=== PATIENT | female | born 1960 | race Asian ===

== ENCOUNTER 2016-12-30 15:45 | Inpatient (IN) | payer OTHER ==
[~2016-12-30] VITALS: Ht 157.5 cm; Wt 54.4 kg
--- NOTE | 2016-12-30 17:21 | Emergency Room Report ---
History of Present Illness General Chief Complaint: Multiple Trauma/Fall Source: Patient Present Illness HPI 56 YOF with known right hip cancer presents with fall on right hip going to bathroom. On chemo for right hip "bone cancer." Ambulates with crutches at baseline. No other medical problems. Didnt hit head or other injury. Allergies: Coded Allergies: No Known Allergies (Unverified , 12/30/16) Patient History Past Medical History: other - "bone cancer" Past Surgical History: none Pertinent Family History: none Social History: Denies: alcohol use, drug use, smoking Now: No Immunizations: UTD Reviewed Nursing Documentation: PMH: Agreed, PSxH: Agreed Nursing Documentation-PMH Hx Cancer: Yes - RIGHT HIP Review of Systems All Other Systems: negative except mentioned in HPI Physical Exam Vital Signs Date Time Temp Pulse Resp B/P Pulse Ox O2 Delivery O2 Flow Rate FiO2 12/30/16 15:37 97.2 78 16 119/71 98 Room Air Sp02 EP Interpretation: reviewed, normal General Appearance: normal inspection, well appearing, no apparent distress, alert, GCS 15, non-toxic Head: normocephalic, atraumatic Eyes: bilateral eye EOMI, bilateral eye PERRL ENT: normal ENT inspection, hearing grossly normal, normal voice Neck: normal inspection, full range of motion, supple, no bony tend Respiratory: normal inspection, lungs clear, normal breath sounds, no respiratory distress, no retraction, no wheezing Cardiovascular #1: regular rate, rhythm, no edema Gastrointestinal: normal inspection, normal bowel sounds, non tender, soft, no guarding, no hernia Genitourinary: no CVA tenderness Musculoskeletal: normal inspection, back normal, no calf tenderness, pelvis stable, Angel Luis's Sign negative, other - Right lower extremity shortened, rotated externally. 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 H&h stable. CT hip with acute traumatic fx of right femoral neck thru lytic lesion. Other lytic lesions and ?old fractures pathological also seen Endorsed to Dr Gagnon at 715pm for med surg admission Consult placed to Dr Silverman also at 715pm Last Vital Signs Date Time Temp Pulse Resp B/P Pulse Ox O2 Delivery O2 Flow Rate FiO2 12/30/16 15:37 97.2 78 16 119/71 98 Room Air Status: improved Disposition: ADMITTED INPATIENT Condition: Serious JULISA HOLLAND M.D. Dec 30, 2016 17:21
[2016-12-30] MEDS ORDERED: Ketorolac 30mg Inj IV ONE (17:30)
[2016-12-30 17:55] LABS: MEAN CORPUSCULAR HEMOGLOBIN 31.3 PG (27.0-31.0); MEAN CORPUSCULAR HGB CONC 32.2 G/DL (32.0-36.0); MEAN CORPUSCULAR VOLUME 97 FL (80-99); MEAN PLATELET VOLUME 6.9 FL (6.5-10.1); PLATELET COUNT 133 K/UL (150-450); RED BLOOD COUNT 3.47 M/UL (4.20-5.40); RED CELL DISTRIBUTION WIDTH 14.3 % (11.6-14.8)
[2016-12-30 18:10] LABS: ALANINE AMINOTRANSFERASE 19 U/L (3-33); ALBUMIN/GLOBULIN RATIO 1.7 (1.0-2.7); ANION GAP 17 (5-15); ASPARTATE AMINO TRANSFERASE 17 U/L (5-40); CALCIUM 9.3 mg/dL (8.6-10.2); CARBON DIOXIDE 25 mEQ/L (20-30); CHLORIDE 97 mEQ/L (98-107); CREATININE 0.4 mg/dL (0.5-0.9); GLOMERULAR FILTRATION RATE > 60 mL/min (>60); HEMOLYSIS 5; POTASSIUM 4.2 mEQ/L (3.4-4.9); SODIUM 139 mEQ/L (135-145); TOTAL PROTEIN 6.6 g/dL (6.6-8.7)
[2016-12-30] MEDS ORDERED: NKM (18:13)
[2016-12-30 18:47] LABS: ANISOCYTOSIS 1+; BAND NEUTROPHILS % (MANUAL) 1 % (0-8); BASOPHILS % (MANUAL) 0 % (0-2); EOSINOPHILS % (MANUAL) 0 % (0-3); HYPOCHROMASIA 1+; LYMPHOCYTES % (MANUAL) 8 % (20-45); NEUTROPHILS % (MANUAL) 87 % (45-75); PLATELET ESTIMATE DECREASED; PLATELET MORPHOLOGY NORMAL; TOTAL CELLS COUNTED 100
[2016-12-30 20:12] VITALS: BP 98/63
[2016-12-30] MEDS: Morphine Sulfate 4mg/ml Inj IVP PRN (20:36)
[2016-12-30 20:47] LABS: HEMOLYSIS 5; IRON 51 ug/dL (37-145); TOTAL IRON BINDING CAPACITY 218 ug/dL (250-400)
[2016-12-30 21:19] LABS: FERRITIN 406 ng/mL (13-150)
[2016-12-30 22:00] VITALS: BP 112/71
[2016-12-30] MEDS ORDERED: Morphine Sulfate 4mg/ml Inj IVP PRN (22:30)
[2016-12-31] VITALS: BP 101/62
[2016-12-31] MEDS: Morphine Sulfate 4mg/ml Inj IVP PRN ×4 (01:15→23:50)
[2016-12-31 04:00] VITALS: BP 102/61
[2016-12-31 06:53] LABS: ANION GAP 12 (5-15); CALCIUM 8.4 mg/dL (8.6-10.2); CARBON DIOXIDE 28 mEQ/L (20-30); CHLORIDE 101 mEQ/L (98-107); CREATININE 0.4 mg/dL (0.5-0.9); GLOMERULAR FILTRATION RATE > 60 mL/min (>60); HEMOLYSIS 1; POTASSIUM 4.2 mEQ/L (3.4-4.9); SODIUM 141 mEQ/L (135-145)
[2016-12-31 07:15] LABS: BASOPHILS % (AUTO) 0.4 % (0.0-2.0); EOSINOPHILS % (AUTO) 0.1 % (0.0-3.0); LYMPHOCYTES % (AUTO) 4.1 % (20.0-45.0); MEAN CORPUSCULAR HEMOGLOBIN 30.8 PG (27.0-31.0); MEAN CORPUSCULAR HGB CONC 31.7 G/DL (32.0-36.0); MEAN CORPUSCULAR VOLUME 97 FL (80-99); MEAN PLATELET VOLUME 7.2 FL (6.5-10.1); MONOCYTES % (AUTO) 12.9 % (1.0-10.0); NEUTROPHILS % (AUTO) 82.6 % (45.0-75.0); PLATELET COUNT 145 K/UL (150-450); RED BLOOD COUNT 3.58 M/UL (4.20-5.40); RED CELL DISTRIBUTION WIDTH 14.4 % (11.6-14.8); WHITE BLOOD COUNT 5.3 K/UL (4.8-10.8)
--- NOTE | 2016-12-31 07:51 | Consultation ---
History of Present Illness General Date patient seen: Dec 31, 2016 Present Illness Allergies: Coded Allergies: No Known Allergies (Unverified , 12/30/16) Medication History Scheduled No Known Medications* (NKM - No Known Medications*), 0 ., (Reported) Patient History Healthcare decision maker Resuscitation status Full Code Advanced Directive on File Physical Exam Last 24 Hour Vital Signs Date Time Temp Pulse Resp B/P Pulse Ox O2 Delivery O2 Flow Rate FiO2 12/31/16 04:00 98.0 74 18 102/61 97 Room Air 12/31/16 00:00 97.9 68 18 101/62 98 Room Air 12/30/16 22:00 97.7 72 18 112/71 100 Room Air 12/30/16 20:52 97.2 12/30/16 20:52 97.2 72 16 98/63 98 Room Air 12/30/16 20:34 97.2 12/30/16 20:12 72 16 98/63 98 Room Air 12/30/16 15:37 97.2 78 16 119/71 98 Room Air Intake and Output 12/30/16 12/31/16 19:00 07:00 Intake Total 490 ml Balance 490 ml Intake IV Total 490 ml # Voids 1 Laboratory Tests Test 12/30/16 17:45 12/30/16 19:59 12/31/16 05:50 12/31/16 06:00 White Blood Count 7.0 K/UL (4.8-10.8) 5.3 K/UL (4.8-10.8) Red Blood Count 3.47 M/UL (4.20-5.40) L 3.58 M/UL (4.20-5.40) L Hemoglobin 10.9 G/DL (12.0-16.0) L 11.0 G/DL (12.0-16.0) L Hematocrit 33.7 % (37.0-47.0) L 34.9 % (37.0-47.0) L Mean Corpuscular Volume 97 FL (80-99) 97 FL (80-99) Mean Corpuscular Hemoglobin 31.3 PG (27.0-31.0) H 30.8 PG (27.0-31.0) Mean Corpuscular Hemoglobin Concent 32.2 G/DL (32.0-36.0) 31.7 G/DL (32.0-36.0) L Red Cell Distribution Width 14.3 % (11.6-14.8) 14.4 % (11.6-14.8) Platelet Count 133 K/UL (150-450) L 145 K/UL (150-450) L Mean Platelet Volume 6.9 FL (6.5-10.1) 7.2 FL (6.5-10.1) Neutrophils (%) (Auto) % (45.0-75.0) 82.6 % (45.0-75.0) H Lymphocytes (%) (Auto) % (20.0-45.0) 4.1 % (20.0-45.0) L Monocytes (%) (Auto) % (1.0-10.0) 12.9 % (1.0-10.0) H Eosinophils (%) (Auto) % (0.0-3.0) 0.1 % (0.0-3.0) Basophils (%) (Auto) % (0.0-2.0) 0.4 % (0.0-2.0) Differential Total Cells Counted 100 Neutrophils % (Manual) 87 % (45-75) H Lymphocytes % (Manual) 8 % (20-45) L Monocytes % (Manual) 4 % (1-10) Eosinophils % (Manual) 0 % (0-3) Basophils % (Manual) 0 % (0-2) Band Neutrophils 1 % (0-8) Platelet Estimate Decreased L Platelet Morphology Normal Hypochromasia 1+ Anisocytosis 1+ Reticulocyte Count 2.0 % (0.0-2.0) Sodium Level 139 mEQ/L (135-145) 141 mEQ/L (135-145) Potassium Level 4.2 mEQ/L (3.4-4.9) 4.2 mEQ/L (3.4-4.9) Chloride Level 97 mEQ/L (98-107) L 101 mEQ/L (98-107) Carbon Dioxide Level 25 mEQ/L (20-30) 28 mEQ/L (20-30) Anion Gap 17 (5-15) H 12 (5-15) Blood Urea Nitrogen 9 mg/dL (7-23) 12 mg/dL (7-23) Creatinine 0.4 mg/dL (0.5-0.9) L 0.4 mg/dL (0.5-0.9) L Estimat Glomerular Filtration Rate > 60 mL/min (>60) > 60 mL/min (>60) Glucose Level 104 mg/dL (74-106) 84 mg/dL (74-106) Calcium Level 9.3 mg/dL (8.6-10.2) 8.4 mg/dL (8.6-10.2) L Total Bilirubin 0.3 mg/dL (0.0-1.2) Aspartate Amino Transf (AST/SGOT) 17 U/L (5-40) Alanine Aminotransferase (ALT/SGPT) 19 U/L (3-33) Alkaline Phosphatase 114 U/L (35-104) H Total Protein 6.6 g/dL (6.6-8.7) Albumin 4.2 g/dL (3.5-5.2) Globulin 2.4 g/dL Albumin/Globulin Ratio 1.7 (1.0-2.7) Pending Iron Level 51 ug/dL (37-145) Total Iron Binding Capacity 218 ug/dL (250-400) L Percent Iron Saturation 23 % (15-50) Unsaturated Iron Binding 167 ug/dL (112-346) Ferritin 406 ng/mL (13-150) H Total Protein (PEP) Pending Albumin (PEP) Pending Globulin (PEP) Pending Xxcyz-8-Wzufcgbzf Pending Whekh-9-Tpilgzqgf Pending Beta Globulins Pending Beta Gamma Globulin Pending PEP Abnormal Protein Bands Pending Protein Electrophoresis Interpret Pending CA 125 Antigen Pending Urine Total Protein Pending Urine Albumin (%) Pending Urine Pssar-4-Yolfttdjm (%) Pending Urine Hsgdr-2-Mxpkxwgkm (%) Pending Urine Beta-Globulin (%) Pending Urine Gamma Globulin (%) Pending Ur Protein Electrophoresis M-Russell Pending Urine Protein Electrophoresis Intrp Pending Height (Feet): 5 Height (Inches): 2.00 Weight (Pounds): 120 Medications Current Medications Medications (Trade) Dose Ordered Sig/Wade Route PRN Reason Start Time Stop Time Status Last Admin Dose Admin Acetaminophen (Tylenol) 650 mg Q4H PRN ORAL Mild Pain 12/30/16 22:30 01/29/17 22:29 Morphine Sulfate (Morphine Sulfate) 4 mg Q4H PRN IVP For Pain 12/30/16 20:15 01/06/17 20:14 12/31/16 01:15 Morphine Sulfate 4 mg 4 mg Q4H PRN IVP For Pain 12/30/16 22:30 01/06/17 22:29 Sodium Chloride (0.45% NS 1000ml) 1,000 ml @ 70 mls/hr [id number] IV 12/30/16 23:00 01/29/17 22:59 12/30/16 23:50 Assessment/Plan Assessment/Plan (1) Hip fracture, right (2) Multiple myeloma (3) Intractable pain (4) S/P Fall Seen dictated MAURO JAIME Dec 31, 2016 07:51
[2016-12-31 08:24] VITALS: BP 98/59
--- NOTE | 2016-12-31 08:29 | Diagnostic Imaging Report ---
Indication: Right hip Technique: No IV contrast, per trauma protocol. Spiral acquisitions obtained through the right hip. Multiplanar reconstructions were generated. Total dose length product 291 mGycm. CTDIvol(s) mGy. Radiation dose was minimized using automated exposure control Comparison: Plain radiographs of earlier the same day Findings: There is a comminuted fracture of the right femoral neck. This is minimally displaced, slightly medially angulated. There is an osteolytic lesion within the femoral neck at the location of the fracture site. There is a comminuted fracture of the left ischiopubic junction. There may be an osteolytic lesion at this location. There is evidence of some callus formation at this location. There is an expansile osteolytic lesion of the medial left superior pubic ramus. There is a fracture at this location as well. Other osteolytic lesions are also demonstrated scattered throughout the bony pelvis, within the posteromedial right iliac bone, within the right iliac wing, the right superior pubic ramus, the right proximal femoral shaft. The included pelvic soft tissues demonstrate a soft tissue nodule within the anterior pelvic wall subcutaneous fat on the left which measures 3 cm. Other soft tissue nodules are seen within the retroperitoneal fat just above the iliac crest and in the left buttock subcutaneous fat just above the iliac crest. The remaining pelvic viscera appear unremarkable Impression: Positive for comminuted right femoral neck fracture. This is a pathologic fracture. Positive for pathologic fractures of the left superior and inferior pubic rami. These are probably subacute Other osteolytic lesions throughout the pelvis, presumably representing metastatic neoplasm Multiple soft tissue nodules as described, likely also representing metastatic This agrees with the preliminary interpretation provided overnight by Dr. Ledesma The CT scanner at [facility] is accredited by the [employer] and the scans are performed using protocols designed to limit radiation exposure to as low as reasonably achievable to attain images of sufficient resolution adequate for diagnostic evaluation.
--- NOTE | 2016-12-31 11:03 | Diagnostic Imaging Report ---
Indications: PAIN Technique: Two views of the right femur Comparison: None Findings: There is a fracture of the right femoral neck, described on prior radiographic reports as well as prior CT. There is an osteolytic of the proximal femoral shaft. There is also an osteolytic lesion of the distal femoral shaft, which measures approximately 3.4 cm long axis dimension. This demonstrates indistinct borders and endosteal cortical thinning. No other acute fractures. Impression: Positive for femoral neck fracture, also previously described 2 osteolytic lesions within the femoral shaft, as described, most likely metastatic deposits. Correlate with clinical history
[2016-12-31 11:30] VITALS: BP 86/53
--- NOTE | 2016-12-31 13:07 | Consultation ---
DATE OF CONSULTATION: 12/31/2016 PAIN MANAGEMENT CONSULTATION CONSULTING PHYSICIAN: Mahi Edwards M.D. REFERRING PHYSICIAN: Cisco Toussaint M.D. PHYSICIAN PROJECT CONTROLS SPECIALIST: Alysha Da Silva CHIEF COMPLAINT: Right hip pain. HISTORY OF PRESENT ILLNESS: This is a 56-year-old female, who is being seen on the Med/Surg floor of [facility] [place] for initial comprehensive pain management consultation. The patient reports that she has been having pain in the right hip stating that she has right hip cancer due to Multiple myeloma, getting chemotherapy and explains that she had a fall injuring her right hip. Upon admission, CT scan of the hip showed an acute traumatic fracture of the right femoral neck through the lytic lesion and was admitted under the care Dr. Toussaint, and will be seen by Dr. Silverman for a surgical consultation. At this time, the patient is on morphine 4 mg IV every four hours as needed for pain. Reporting that while at rest, she has no pain, however with movement pain is increased to 7/10, reduced to 0/10 on the morphine. The patient is comfortable, awaiting to be seen by again the surgeon for possible surgery. PAST MEDICAL HISTORY: Multiple myeloma. PAST SURGICAL HISTORY: Denies. MEDICATIONS: Morphine and Tylenol. ALLERGIES: No known drug allergies. SOCIAL HISTORY: Denies. REVIEW OF SYSTEMS: Denies rash, fever, chills, sweating, dizziness, drowsiness, blurred vision, sore throat, or change in weight. No shortness of breath or chest pain. No nausea, vomiting, or blood in the stool or urine. No bowel or bladder incontinence. No dysuria. She is complaining of right hip pain. PHYSICAL EXAMINATION: GENERAL: Alert, awake, and oriented x3. The patient is Hungarian and being interpreted. VITAL SIGNS: Blood pressure 102/61, heart rate 75, oxygen saturation 97%, respiratory rate 18, and temperature is 98.0 degrees Fahrenheit. Height is 5 feet 2 inches and weight is 120 pounds. HEENT: PERRLA. NECK: Range of motion is full in all directions. No tenderness to paracervical muscles. No adenopathy. LUNGS: Lungs are clear. HEART: Regular. ABDOMEN: Benign. BACK: Range of motion is full on flexion and extension. No tenderness to paraspinal muscles, trapezius muscles or rhomboid muscles. EXTREMITIES: Upper extremity range of motion is full in all directions. Motor is intact. No cyanosis. No clubbing. No edema. Sensory is intact. Reflexes are not obtainable. No adenopathy. Lower extremity range of motion is decreased due to patient's pain and condition with tenderness to palpation of the right hip. Bruising noted. No cyanosis. No clubbing. Sensory is intact. Reflexes are not obtainable. No adenopathy. ASSESSMENT AND PLAN: This is a 56-year-old female with right hip fracture, status post fall, Multiple myeloma, and intractable pain. The patient will be continued on morphine 4 mg IV every four hours as needed for severe pain. She will be seen by the orthopedic surgeon for recommendation upon surgery. The patient was discussed with Dr. Edwards and Dr. Edwards concurred. We will follow up the patient. Thank you very much for the courtesy of this consultation. Mahi Edwards M.D. KODAK Da Silva DR: Solo JOB#: [id number] CC: ARASH
--- NOTE | 2016-12-31 14:26 | Diagnostic Imaging Report ---
Indication: PAIN Technique: One view of the pelvis, 2 views of the right hip Comparison: None Findings: There is a comminuted fracture of the right femoral neck which is slightly angulated. Is an osteolytic lesion of the proximal right femur. There there are comminuted fractures of the right superior and inferior pubic rami. These demonstrate sclerotic borders as well as some central lucency. These are probably subacute pathologic fractures. Impression: Positive for right hip fracture, likely acute Positive for left superior and inferior pubic ramus fractures, likely subacute is presumably pathologic. Possibly lesion in the right proximal femur, presumed neoplasm
[2016-12-31 16:00] VITALS: BP 97/62
--- NOTE | 2016-12-31 16:32 | Consultation ---
Consult Note Consult Note DATE OF CONSULTATION: 12/30/2016 HEMATOLOGY CONSULTATION CONSULTING PHYSICIAN: Francis Fu MD. REFERRING PHYSICIAN: Cisco Toussaint M.D CHIEF COMPLAINT: Right hip pain and multiple myeloma HISTORY OF PRESENT ILLNESS: This is a 56-year-old female, who is being seen on the Med/Surg floor of [facility] for initial hematology consultation. The patient reports that she has been having pain in the right hip stating that she has right hip cancer due to multiple myeloma, getting chemotherapy and explains that she had a fall injuring her right hip. Upon admission, CT scan of the hip showed an acute traumatic fracture of the right femoral neck through the lytic lesion and was admitted under the care Dr. Toussaint, and will be seen by Dr. Silverman for a surgical consultation. At this time, the patient is on morphine 4 mg IV every four hours as needed for pain. Reporting that while at rest, she has no pain, however with movement pain 7/10, reduced to 0 on the morphine. The patient is comfortable, awaiting to be seen by again the surgeon for possible surgery. She is getting chemotherapy with Dr. Darden at [facility], was diagnosed 2 years ago, has been treated since that time, has poor recollection of the medications that she is on, but has been getting medications PO and IV regularly from before. PAST MEDICAL HISTORY: Myeloma cancer. PAST SURGICAL HISTORY: Denies. MEDICATIONS: Morphine and Tylenol. ALLERGIES: No known drug allergies. SOCIAL HISTORY: Denies. Danish speaking REVIEW OF SYSTEMS: Denies rash, fever, chills, sweating, dizziness, drowsiness, blurred vision, sore throat, or change in weight. No shortness of breath or chest pain. No nausea, vomiting, or blood in the stool or urine. No bowel or bladder incontinence. No dysuria. She is complaining of right hip pain. PHYSICAL EXAMINATION: GENERAL: Alert, awake, and oriented x3. The patient is Danish and RN in room to translate VITAL SIGNS: Blood pressure 102/61, heart rate 75, oxygen saturation 97%, respiratory rate 18, and temperature is 98.0 degrees Fahrenheit. Height is 5 feet 2 inches and weight is 120 pounds. HEENT: PERRLA. NECK: Range of motion is full in all directions. No tenderness to paracervical muscles. No adenopathy. LUNGS: Lungs are clear. HEART: Regular. ABDOMEN: Benign. BACK: Range of motion is full on flexion and extension. No tenderness to paraspinal muscles, trapezius muscles or rhomboid muscles EXTREMITIES: Upper extremity range of motion is full in all directions. Motor is intact. No cyanosis. No clubbing. No edema. Sensory is intact. Reflexes are not obtainable. No adenopathy. Lower extremity range of motion is decreased due to patient's LABS: Laboratory Tests Test 12/30/16 17:45 12/30/16 19:59 12/31/16 05:50 12/31/16 06:00 White Blood Count 7.0 K/UL (4.8-10.8) 5.3 K/UL (4.8-10.8) Red Blood Count 3.47 M/UL (4.20-5.40) L 3.58 M/UL (4.20-5.40) L Hemoglobin 10.9 G/DL (12.0-16.0) L 11.0 G/DL (12.0-16.0) L Hematocrit 33.7 % (37.0-47.0) L 34.9 % (37.0-47.0) L Mean Corpuscular Volume 97 FL (80-99) 97 FL (80-99) Mean Corpuscular Hemoglobin 31.3 PG (27.0-31.0) H 30.8 PG (27.0-31.0) Mean Corpuscular Hemoglobin Concent 32.2 G/DL (32.0-36.0) 31.7 G/DL (32.0-36.0) L Red Cell Distribution Width 14.3 % (11.6-14.8) 14.4 % (11.6-14.8) Platelet Count 133 K/UL (150-450) L 145 K/UL (150-450) L Mean Platelet Volume 6.9 FL (6.5-10.1) 7.2 FL (6.5-10.1) Neutrophils (%) (Auto) % (45.0-75.0) 82.6 % (45.0-75.0) H Lymphocytes (%) (Auto) % (20.0-45.0) 4.1 % (20.0-45.0) L Monocytes (%) (Auto) % (1.0-10.0) 12.9 % (1.0-10.0) H Eosinophils (%) (Auto) % (0.0-3.0) 0.1 % (0.0-3.0) Basophils (%) (Auto) % (0.0-2.0) 0.4 % (0.0-2.0) Differential Total Cells Counted 100 Neutrophils % (Manual) 87 % (45-75) H Lymphocytes % (Manual) 8 % (20-45) L Monocytes % (Manual) 4 % (1-10) Eosinophils % (Manual) 0 % (0-3) Basophils % (Manual) 0 % (0-2) Band Neutrophils 1 % (0-8) Platelet Estimate Decreased L Platelet Morphology Normal Hypochromasia 1+ Anisocytosis 1+ Reticulocyte Count 2.0 % (0.0-2.0) Sodium Level 139 mEQ/L (135-145) 141 mEQ/L (135-145) Potassium Level 4.2 mEQ/L (3.4-4.9) 4.2 mEQ/L (3.4-4.9) Chloride Level 97 mEQ/L (98-107) L 101 mEQ/L (98-107) Carbon Dioxide Level 25 mEQ/L (20-30) 28 mEQ/L (20-30) Anion Gap 17 (5-15) H 12 (5-15) Blood Urea Nitrogen 9 mg/dL (7-23) 12 mg/dL (7-23) Creatinine 0.4 mg/dL (0.5-0.9) L 0.4 mg/dL (0.5-0.9) L Estimat Glomerular Filtration Rate > 60 mL/min (>60) > 60 mL/min (>60) Glucose Level 104 mg/dL (74-106) 84 mg/dL (74-106) Calcium Level 9.3 mg/dL (8.6-10.2) 8.4 mg/dL (8.6-10.2) L Total Bilirubin 0.3 mg/dL (0.0-1.2) Aspartate Amino Transf (AST/SGOT) 17 U/L (5-40) Alanine Aminotransferase (ALT/SGPT) 19 U/L (3-33) Alkaline Phosphatase 114 U/L (35-104) H Total Protein 6.6 g/dL (6.6-8.7) Albumin 4.2 g/dL (3.5-5.2) Globulin 2.4 g/dL Albumin/Globulin Ratio 1.7 (1.0-2.7) Pending Iron Level 51 ug/dL (37-145) Total Iron Binding Capacity 218 ug/dL (250-400) L Percent Iron Saturation 23 % (15-50) Unsaturated Iron Binding 167 ug/dL (112-346) Ferritin 406 ng/mL (13-150) H Total Protein (PEP) Pending Albumin (PEP) Pending Globulin (PEP) Pending Olphh-2-Ziljpxqly Pending Xaczi-5-Imtmokfgr Pending Beta Globulins Pending Beta Gamma Globulin Pending PEP Abnormal Protein Bands Pending Protein Electrophoresis Interpret Pending CA 125 Antigen 13.9 U/mL (0.0-38.1) Urine Total Protein Pending Urine Albumin (%) Pending Urine Nznjr-8-Byahpmtjn (%) Pending Urine Aweoh-0-Ueyeeaurw (%) Pending Urine Beta-Globulin (%) Pending Urine Gamma Globulin (%) Pending Ur Protein Electrophoresis M-Russell Pending Urine Protein Electrophoresis Intrp Pending ASSESSMENT: - Multiple myeloma has recently been on treatment with Dr. 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 - Consider fosamax once discharged as well as myeloma med continuation - Anemia w/u has been ordered - Thank you for referral, continue to follow! Francis Fu Dec 31, 2016 16:32
--- NOTE | 2016-12-31 16:37 | History and Physical Report ---
DATE OF ADMISSION: 12/30/2016 HISTORY OF PRESENT ILLNESS: The patient is here because status post fall, and the patient sustained acute right displaced comminuted femoral neck fracture after a traumatic fall. The patient might also have a history of cancer, we are not sure at this patient. The patient speaks Indonesian, cannot give me any reliable history. I could not get hold of any Indonesian nurses to interpret, but we have tried to get more information from a family member that does speak Armenian. 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 Again at this point, it cannot be confirmed. The patient is only 56-year-old Indonesian female who lives with her here and cannot speak Armenian. Complains of severe pain in that area. PAST MEDICAL HISTORY: Lytic bone lesion of the hip, hip fracture on the right, and right femoral neck fracture. PAST SURGICAL HISTORY: None. MEDICATIONS: None. ALLERGIES: No known allergies. FAMILY HISTORY: Noncontributory. SOCIAL HISTORY: Denies history of smoking. Denies history of alcohol or drug abuse. REVIEW OF SYSTEMS: HEENT: Denies headache. Respiratory: Denies shortness of breath. Denies cough. Cardiovascular: Denies chest pain. Gastrointestinal: Denies nausea, vomiting, or diarrhea. Extremities: She does have pain in the right pelvis and the right knee. Central Nervous System: Denies change in vision or speech pattern. PHYSICAL EXAMINATION: VITAL SIGNS: Temperature is 97.2, pulse is 72, and blood pressure is 98/63. HEENT: PERRLA. NECK: Supple. No lymphadenopathy. CHEST: Clear to auscultation. GASTROINTESTINAL: Soft, nontender, and nondistended. No organomegaly. EXTREMITIES: No edema. Reflexes are equal on both sides. range of motion on the right hip due to pain. No edema. Good peripheral pulses present. LABORATORY DATA: White blood cell count of 7, hemoglobin 10.9, and platelets 133,000. Sodium 139, potassium 4.2, BUN of 9, creatinine 0.4, and glucose of 104. ASSESSMENT AND PLAN: Hip fracture. Dr. Silverman will be due to open reduction and internal fixation and repair. We have also consulted Dr. Fu and Dr. Edwards for pain control and Dr. Campbell for dehydration and Dr. Fu to where the cancer is coming from and origin of cancer if any. Cisco Toussaint M.D. DR: NIKI JOB#: [id number] CC:
[2016-12-31] MEDS ORDERED: 1/2 NS 1000ml IV ONE (17:16)
[2016-12-31 20:00] VITALS: BP 101/67
[2017-01-01] VITALS (12 sets, daily range): BP systolic 105–123; BP diastolic 61–82
--- NOTE | 2017-01-01 04:37 | Consultation ---
DATE OF CONSULTATION: 12/31/2016 CHIEF COMPLAINT: Right hip pain. HISTORY OF PRESENT ILLNESS: The patient is a 56-year-old female with history of multiple mylemo who sustained intertrochanteric hip fracture. She subsequently was admitted to the hospital and difficulty ambulating, showed a pathologic lesion and subsequent fracture. Orthopedic consultation was obtained for further care and recommendation. PAST MEDICAL HISTORY: Reviewed from the intake chart. PAST SURGICAL HISTORY: Reviewed from the intake chart. MEDICATION: Reviewed from the intake chart. PHYSICAL EXAMINATION: The patient speaks Malay through translating service. Examination was performed. The patient had pain in the right hip. Posterior calf is soft. Neurovascular is normal. IMAGING STUDIES: Show multiple myeloma at the proximal distal aspect of the femur and there is a proximal intertrochanteric hip fracture. ASSESSMENT: Right proximal intertrochanteric fracture. DISCUSSION: At this point, given her age, I gave consideration for open reduction and internal fixation of right femur, possibility of nonunion was discussed with the patient as well as infection, neurovascular damage, and risk of anesthesia. She understands of the chemotherapy that she is currently on and will have to stop for a period of time before it can be resumed. At this point, we need to proceed the surgery so we can get her up, ambulatory and manage her pain better. She has been cleared by Dr. Toussaint. We will proceed with surgery tomorrow. Maxwell Silverman M.D. DR: NEERAJ JOB#: [id number] CC: ARASH
[2017-01-01] MEDS ORDERED: Propofol 10mg/ml 20ml IV ONE ×2 (06:00→16:00)
[2017-01-01] MEDS: Morphine Sulfate 4mg/ml Inj IVP PRN ×2 (06:31→14:10)
[2017-01-01] MEDS ORDERED: HYDROMORPH IV (06:31)
--- NOTE | 2017-01-01 08:03 | General Progress Note ---
Assessment/Plan Assessment/Plan (1) Hip fracture, right (2) Multiple myeloma (3) Intractable pain (4) S/P Fall The patient will be continued on morphine awaiting ORIF as per surgeon. The patient was discussed with Dr. Edwards and Dr. Edwards concurred. Subjective Date patient seen: Jan 01, 2017 Time patient seen: 07:30 - am Allergies: Coded Allergies: No Known Allergies (Unverified , 12/30/16) Subjective REVIEW OF SYSTEMS: Denies rash, fever, chills, sweating, dizziness, drowsiness, blurred vision, sore throat, or change in weight. No shortness of breath or chest pain. No nausea, vomiting, or blood in the stool or urine. No bowel or bladder incontinence. No dysuria. She is complaining of right hip pain. SUBJECTIVE: Pain is stable while at rest and with movement pain is 6-7/10 She was seen by surgeon and is awaiting surgery for ORIF as per surgeon. Objective Last 24 Hour Vital Signs Date Time Temp Pulse Resp B/P Pulse Ox O2 Delivery O2 Flow Rate FiO2 01/01/17 06:41 97.5 75 19 112/70 98 Room Air 01/01/17 01:00 97.5 83 20 109/61 94 Room Air 12/31/16 20:00 97.3 88 20 101/67 94 Room Air 12/31/16 18:36 98.2 12/31/16 16:00 98.2 81 16 97/62 93 Room Air 12/31/16 11:30 96.6 75 16 86/53 95 Room Air 12/31/16 08:24 97.9 72 18 98/59 97 Room Air Intake and Output 12/31/16 01/01/17 19:00 07:00 Intake Total 525 ml 700 ml Output Total 5 ml Balance 520 ml 700 ml Intake Oral 350 ml IV Total 525 ml 350 ml Output Urine Total 5 ml # Voids 6 Height (Feet): 5 Height (Inches): 2.00 Weight (Pounds): 120 Objective PHYSICAL EXAMINATION: GENERAL: Alert, awake, and oriented x3. The patient is Sinhala and being interpreted. HEENT: PERRLA. NECK: Range of motion is full in all directions. No tenderness to paracervical muscles. No adenopathy. LUNGS: Lungs are clear. HEART: Regular. ABDOMEN: Benign. BACK: Range of motion is full on flexion and extension. No tenderness to paraspinal muscles, trapezius muscles or rhomboid muscles. EXTREMITIES: Lower extremity range of motion is decreased due to patient's pain and condition with tenderness to palpation of the right hip. Bruising noted. NEURO: No changes. MAURO JAIME Jan 01, 2017 08:03
[2017-01-01 11:16] LABS: A/G RATIO 1.5 (0.7-1.7); ABNORMAL PROTEIN BAND 1 0.2 g/dL (Not Observed); ALBUMIN 3.6 g/dL (2.9-4.4); ALPHA-1 GLOBULIN 0.2 g/dL (0.0-0.4); ALPHA-2 GLOBULIN 0.6 g/dL (0.4-1.0); BETA GLOBULIN 0.8 g/dL (0.7-1.3); GAMMA GLOBULIN 0.8 g/dL (0.4-1.8); GLOBULIN, TOTAL 2.4 g/dL (2.2-3.9)
--- NOTE | 2017-01-01 11:54 | General Progress Note ---
Assessment/Plan Problem List: (1) Fall ICD Codes: W19.XXXA - Unspecified fall, initial encounter SNOMED: 0714654, 825430054 Qualifiers: Qualified Codes: W19.XXXA - Unspecified fall, initial encounter (2) Lytic bone lesion of hip ICD Codes: M89.8X5 - Other specified disorders of bone, thigh SNOMED: 63492262 (3) Hip fracture, right ICD Codes: S72.001A - Fracture of unspecified part of neck of right femur, initial encounter for closed fracture SNOMED: 566613354 (4) Fracture of femoral neck, right, closed ICD Codes: S72.001A - Fracture of unspecified part of neck of right femur, initial encounter for closed fracture SNOMED: 267816442, 347106348 Qualifiers: Qualified Codes: S72.001A - Fracture of unspecified part of neck of right femur, initial encounter for closed fracture Status: progressing Assessment/Plan afebrile getting orif today by dr reilly cancer w/u per heme/onc Subjective ROS Limited/Unobtainable: Yes Constitutional: Reports: no symptoms HEENT: Reports: no symptoms Allergies: Coded Allergies: No Known Allergies (Unverified , 12/30/16) Objective Last 24 Hour Vital Signs Date Time Temp Pulse Resp B/P Pulse Ox O2 Delivery O2 Flow Rate FiO2 01/01/17 08:00 98.1 78 18 118/71 99 Room Air 01/01/17 06:41 97.5 75 19 112/70 98 Room Air 01/01/17 01:00 97.5 83 20 109/61 94 Room Air 12/31/16 20:00 97.3 88 20 101/67 94 Room Air 12/31/16 18:36 98.2 12/31/16 16:00 98.2 81 16 97/62 93 Room Air Intake and Output 12/31/16 01/01/17 19:00 07:00 Intake Total 525 ml 770 ml Output Total 5 ml Balance 520 ml 770 ml Intake Oral 350 ml IV Total 525 ml 420 ml Output Urine Total 5 ml # Voids 6 Height (Feet): 5 Height (Inches): 2.00 Weight (Pounds): 120 Cardiovascular: normal rate Respiratory/Chest: lungs clear Abdomen: non tender Cisco Toussaint MD Jan 01, 2017 11:54
[2017-01-01 13:06] LABS: PROTHROMBIN TIME 10.2 SEC (9.30-11.50)
--- NOTE | 2017-01-01 14:08 | General Progress Note ---
Assessment/Plan Assessment/Plan ASSESSMENT: - Multiple myeloma has recently been on treatment with Dr. 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 - Consider fosamax once discharged as well as myeloma med continuation - Anemia w/u has been ordered--> shows ACD - Thank you for referral, continue to follow! Subjective Date patient seen: Dec 31, 2016 Constitutional: Reports: no symptoms HEENT: Reports: no symptoms Cardiovascular: Reports: no symptoms Respiratory: Reports: cough Gastrointestinal/Abdominal: Reports: no symptoms Genitourinary: Reports: no symptoms Neurologic/Psychiatric: Reports: no symptoms Endocrine: Reports: no symptoms Hematologic/Lymphatic: Reports: anemia Allergies: Coded Allergies: No Known Allergies (Unverified , 12/30/16) Subjective stable, no events, no fevers or chills Objective Last 24 Hour Vital Signs Date Time Temp Pulse Resp B/P Pulse Ox O2 Delivery O2 Flow Rate FiO2 01/01/17 12:00 97.9 80 20 116/74 95 Room Air 01/01/17 08:00 98.1 78 18 118/71 99 Room Air 01/01/17 06:41 97.5 75 19 112/70 98 Room Air 01/01/17 01:00 97.5 83 20 109/61 94 Room Air 12/31/16 20:00 97.3 88 20 101/67 94 Room Air 12/31/16 18:36 98.2 12/31/16 16:00 98.2 81 16 97/62 93 Room Air Intake and Output 12/31/16 01/01/17 18:59 06:59 Intake Total 595 ml 700 ml Output Total 5 ml Balance 590 ml 700 ml Intake Oral 350 ml IV Total 595 ml 350 ml Output Urine Total 5 ml # Voids 6 Laboratory Tests 01/01/17 12:15: Prothrombin Time 10.2, Prothromb Time International Ratio 1.0, Activated Partial Thromboplast Time 29 Height (Feet): 5 Height (Inches): 2.00 Weight (Pounds): 120 General Appearance: no apparent distress EENT: TMs normal Neck: supple Cardiovascular: normal rate Respiratory/Chest: no respiratory distress Abdomen: non tender Extremities: non-tender Skin: warm/dry Francis Fu Jan 01, 2017 14:08
[2017-01-01] MEDS ORDERED: Bupivacaine 0.5% Inj 30 ml vial INJ ONE (14:32)
[2017-01-01] MEDS ORDERED: Duramorph PF 5mg/10ml amp ONE (14:32)
--- NOTE | 2017-01-01 15:07 | Anethesia Preoperative Eval ---
Anesthesia Pre-op PMH/ROS General Date of Evaluation: Jan 01, 2017 Time of Evaluation: 15:01 Anesthesiologist: Jerry ASA Score: ASA 3 Mallampati Score Class I : Soft palate, uvula, fauces, pillars visible Class II: Soft palate, uvula, fauces visible Class III: Soft palate, base of uvula visible Class IV: Only hard plate visible Mallampati Classification: Class II Surgeon: Herrera Diagnosis: R femoral neck Fx Surgical Procedure: ORIF of R femoral Fx Anesthesia History: none Family History: no anesthesia problems Allergies: Coded Allergies: No Known Allergies (Unverified , 12/30/16) Medications: see eMAR Past Medical History Cardiovascular: Denies: CAD, HTN, [place], arrhythmia, other, valve dz Pulmonary: Denies: COPD, RAI, asthma, other Gastrointestinal/Genitourinary: Reports: GERD, Denies: CRI, ESRD, other Neurologic/Psychiatric: Reports: depression/anxiety, Denies: CVA, TIA, dementia, other Endocrine: Denies: DM, hypothyroidism, other, steroids HEENT: Denies: POINT LAY IRA (L), PO[place] LAY IRA (R), cataract (L), cataract (R), glaucoma, other Hematology/Immune: Reports: other - Metastatic multiple myeloma on chemo., Denies: DVT, anemia, bleeding disorder Musculoskeletal/Integumentary: Reports: other - severe osteoporosis with multiple osteolytic lesions, Denies: DDD, DJD, OA, RA, edema PMH Narrative: as above PSxH Narrative: Appendectomy ovarian cyst removal Anesthesia Pre-op Phys. Exam Physician Exam Last Vital Signs Date Time Temp Pulse Resp B/P Pulse Ox O2 Delivery O2 Flow Rate FiO2 01/01/17 12:00 97.9 80 20 116/74 95 Room Air Constitutional: NAD Neurologic: CN 2-12 intact Cardiovascular: RRR, no M/R/G Respiratory: CTA Gastrointestinal: S/NT/ND Airway Exam Mallampati Score: Class II MO: limited Neck: stiff ROM: limited Teeth: missing Dentures: no lower, no upper Anesthesia Pre-op A/P Labs Coagulation Test 01/01/17 12:15 Prothrombin Time 10.2 SEC (9.30-11.50) Prothromb Time International Ratio 1.0 (0.9-1.1) Activated Partial Thromboplast Time 29 SEC (23-33) Risk Assessment & Plan Assessment: ASA 3 Plan: SAB vs GA Status Change Before Surgery: No Pre-Antibiotics Drug: Ancef 1 gr. Given Within 1 Hr of Incision: Yes Time Given: 16:02 YING CELESTE M.D. Jan 01, 2017 15:07
[2017-01-01] MEDS ORDERED: NS Irrig 1000ml ONE (16:00)
[2017-01-01] MEDS ORDERED: fentaNYL 100 mcg/2 mL IV ONE (16:00)
[2017-01-01] MEDS ORDERED: LR 1000ml ONE (16:00)
[2017-01-01] MEDS ORDERED: Midazolam 2mg/2ml Inj ONE (16:00)
--- NOTE | 2017-01-01 16:25 | Pre-Procedure Note/Attestation ---
Pre-Procedure Note/Attestation Complete Prior to Procedure Planned Procedure: right Procedure Narrative: hip orif Indications for Procedure Pre-Operative Diagnosis: pathologic femur fracture Attestation I attest that I discussed the nature of the procedure; its benefits; risks and complications; and alternatives (and the risks and benefits of such alternatives ), prior to the procedure, with the patient (or the patient's legal construction representative). I attest that, if there was a reasonable possibility of needing a blood transfusion, the patient (or the patient's legal construction representative) was given the [facility] standardized written summary, pursuant to the Omer Sommer Blood Safety Act ([place] Health and Safety Code # 1645, as amended). I attest that I re-evaluated the patient just prior to the surgery and that there has been no change in the patient's H&P, except as documented below: SOFIE KELLEY Jan 01, 2017 16:25
--- NOTE | 2017-01-01 16:26 | Operative Note - PDOC ---
Operative Note Operative Note Pre-op Diagnosis: pathologic femur fracture Procedure: orif right hip Post-op Diagnosis: same as pre-op Operative Findings: consistent w/pre-op dx studies Anesthesia: regional Specimen: none Complications: none Condition: stable Estimated Blood Loss: none Implant(s) used?: Yes SOFIE KELLEY Jan 01, 2017 16:26
[2017-01-01] MEDS ORDERED: Norco 7.5mg/325mg tab ORAL PRN (16:30)
[2017-01-01] MEDS ORDERED: Milk of Magnesia 30ml Ud ORAL PRN (16:30)
[2017-01-01] MEDS ORDERED: LR 1000ml 1,000 ML IVLG SCH (17:06)
[2017-01-01] MEDS ORDERED: Bacitracin 50000 Units Vial IRRIG ONE (17:13)
[2017-01-01] MEDS ORDERED: DiphenhydrAMINE 50mg/ml Inj IVP PRN (17:15)
[2017-01-01] MEDS ORDERED: fentaNYL 100 mcg/2 mL IV PRN (17:15)
--- NOTE | 2017-01-01 17:39 | Immediate Post-Op Evaluation ---
Immediate Post-Op Evalulation Immediate Post-Op Evalulation Procedure: ORIF of R femoral neck Fx Date of Evaluation: Jan 01, 2017 Time of Evaluation: 17:38 IV Fluids: 500 Blood Products: none Estimated Blood Loss: 50 Urinary Output: 100 Blood Pressure Systolic: 122 Blood Pressure Diastolic: 74 Pulse Rate: 78 Respiratory Rate: 20 O2 Sat by Pulse Oximetry: 99 Temperature (Fahrenheit): 97.5 Pain Score (1-10): 1 Nausea: No Vomiting: No Complications none Patient Status: awake, patent, none Hydration Status: adequate YING CELESTE M.D. Jan 01, 2017 17:39
[2017-01-01] MEDS ORDERED: Morphine Sulfate 2mg/ml Inj IVP PRN ×2 (19:00)
[2017-01-01] MEDS ORDERED: Morphine Sulfate 4mg/ml Inj IVP PRN (19:00)
--- NOTE | 2017-01-01 19:59 | Cardiology Report ---
APPROVED REPORT EKG Measurement Heart [id number] ID [id number] Normal sinus rhythm Minimal voltage criteria for LVH, may be normal variant Borderline ECG
[2017-01-01] MEDS: Pericolace tab ORAL SCH (20:00)
[2017-01-01] MEDS: D5 1/2NS w/KCl 20mEq 1,000 ML IV SCH (20:00)
--- NOTE | 2017-01-01 22:29 | Operative Note - Dictated ---
DATE OF OPERATION: 01/01/2017 PREOPERATIVE DIAGNOSIS: Right pathologic subtrochanteric femur fracture. POSTOPERATIVE DIAGNOSIS: Right pathologic subtrochanteric femur fracture. PROCEDURES: Open reduction and internal fixation right subtrochanteric femur fracture with intramedualary device. SURGEON: Maxwell Silverman M.D. ANESTHESIA: Spinal. INDICATION FOR PROCEDURE: The patient is a pleasant female, who has a history of multiple myeloma. She had a pathologic femur fracture was indicative of operative fixation. Risks, limitations, expectations, and complications of procedure were discussed in detail. All questions were addressed including mortality risk, infection, nerve damage, nonunion, and need for future surgery, risk of anesthesia, medical complications, etc., all questions were addressed. DESCRIPTION OF PROCEDURE: After informed consent was obtained, the patient was brought to the operative room and placed under monitored anesthesia. Mason catheter was placed. The patient was then carefully placed on the fracture table, reduction of the fracture was performed under fluoroscopic imaging. The right hip was prepped and draped in a sterile manner. Time-out was performed. Ancef was administered. Lateral skin incision was then made. Guidewire was placed. The proximal aspect of the femur opening was then used to open up the opening reamer. Nonbeaded tip guidewire was then placed into the intramedullary canal, 12 was performed, approximately it was opened with 15.5. A 10 x 320 nail was selected and placed through the second stab incision, a guidewire was placed at the neck head junction. An 80 mm gamma screw was then selected and placed. At this point, the distal target device was placed and distal locking screws were placed. At this point, the instruments were removed. Portal sites closed with 3-0 Monocryl sutures and sterile dressing were applied. The patient was awoken and taken to the recovery room with stable vital signs. ESTIMATED BLOOD LOSS: 50 mL. COMPLICATIONS: None. SPECIMENS: None. IMPLANT: Include a [place] long gamma nail 18 mm cannulated screw. 32 and 35 distal locking screws. Maxwell Silverman M.D. DR: Bob JOB#: [id number] CC: ARASH
[2017-01-02] VITALS: BP 95/61
[2017-01-02] MEDS ORDERED: ceFAZolin sod 2 GM in D5W 110 ML IV SCH ×2
[2017-01-02] MEDS: ceFAZolin sod 2 GM in NS 110 ML IV SCH ×2 (00:19→08:16)
[2017-01-02] MEDS: D5 1/2NS w/KCl 20mEq 1,000 ML IV SCH (03:11)
[2017-01-02 04:00] VITALS: BP 101/66
[2017-01-02] MEDS: Pericolace tab ORAL SCH ×2 (08:16→17:42)
--- NOTE | 2017-01-02 08:26 | General Progress Note ---
Assessment/Plan Assessment/Plan ASSESSMENT: - Multiple myeloma has recently been on treatment with Dr. Darden [facility] [place] [facility] - continue outpatient followup, disease has been under good control and will order SPEP to quantify abnormal M-protein at this moment. 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 - Consider fosamax once discharged as well as myeloma med continuation - Anemia w/u has been ordered--> shows ACD - Thank you for referral, continue to follow! Subjective Constitutional: Reports: no symptoms HEENT: Reports: no symptoms Cardiovascular: Reports: no symptoms Respiratory: Reports: no symptoms Gastrointestinal/Abdominal: Reports: no symptoms Genitourinary: Reports: no symptoms Neurologic/Psychiatric: Reports: no symptoms Endocrine: Reports: no symptoms Hematologic/Lymphatic: Reports: anemia Allergies: Coded Allergies: No Known Allergies (Unverified , 12/30/16) Subjective stable, no events, no fevers or chills Objective Last 24 Hour Vital Signs Date Time Temp Pulse Resp B/P Pulse Ox O2 Delivery O2 Flow Rate FiO2 01/02/17 04:00 97.9 84 16 101/66 100 Nasal Cannula 2.0 01/02/17 00:00 99.5 94 18 95/61 99 Nasal Cannula 2.0 01/01/17 20:00 99 Nasal Cannula 2.0 28 01/01/17 20:00 Nasal Cannula 2.0 28 01/01/17 20:00 98.1 81 17 105/64 99 Nasal Cannula 2.0 01/01/17 18:15 98.0 76 12 114/71 100 Nasal Cannula 3.0 01/01/17 18:00 76 16 106/74 100 Nasal Cannula 3.0 01/01/17 17:50 77 14 105/73 100 Nasal Cannula 3.0 01/01/17 17:42 75 12 120/72 100 Nasal Cannula 3.0 01/01/17 17:39 78 20 99 01/01/17 17:37 76 16 113/79 100 Simple Mask 6.0 01/01/17 17:32 97.9 79 22 123/82 100 Simple Mask 6.0 01/01/17 17:00 97.9 77 17 111/63 98 Nasal Cannula 2.0 01/01/17 14:40 97.9 01/01/17 12:00 97.9 80 20 116/74 95 Room Air Intake and Output 01/01/17 01/02/17 19:00 07:00 Intake Total 1490 ml 1990 ml Output Total 180 ml 1450 ml Balance 1310 ml 540 ml Intake Oral 0 ml 740 ml IV Total 1490 ml 1250 ml Output Urine Total 130 ml 1450 ml Estimated Blood Loss 50 ml # Voids 4 Laboratory Tests 01/01/17 12:15: Prothrombin Time 10.2, Prothromb Time International Ratio 1.0, Activated Partial Thromboplast Time 29 Height (Feet): 5 Height (Inches): 2.00 Weight (Pounds): 120 General Appearance: no apparent distress EENT: TMs normal Neck: supple Cardiovascular: regular rhythm Respiratory/Chest: lungs clear Abdomen: soft Edema: 1+ Leg (L), 1+ Leg (R) Edema: mild edema Neurologic: alert Skin: warm/dry Francis Fu Jan 02, 2017 08:26
--- NOTE | 2017-01-02 09:11 | General Progress Note ---
Assessment/Plan Assessment/Plan (1) Hip fracture, right (2) Multiple myeloma (3) Intractable pain (4) S/P Fall (5) S/P ORIF The patient will be continued on morphine 4mg IV Q3H PRN MOD pain, Oxycodone 5mg Q4h Break through pain and will be started on Dilaudid 1mg IV Q4H PRN severe pain. RX for Percocet 5/325mg 30 tabs was written for pt in anticipation for discharge. The patient was discussed with Dr. Edwards and Dr. Edwards concurred. Subjective Date patient seen: Jan 02, 2017 Time patient seen: 08:15 - am Allergies: Coded Allergies: No Known Allergies (Unverified , 12/30/16) Subjective REVIEW OF SYSTEMS: Denies rash, fever, chills, sweating, dizziness, drowsiness, blurred vision, sore throat, or change in weight. No shortness of breath or chest pain. No nausea, vomiting, or blood in the stool or urine. No bowel or bladder incontinence. No dysuria. She is complaining of right hip pain. SUBJECTIVE: Pt is s/p ORIF and says that her pain is a 7/10 and receives the Morphine 4mg which slightly reduces her pain. She has not started to walk with PT yet which may increase her pain. Objective Last 24 Hour Vital Signs Date Time Temp Pulse Resp B/P Pulse Ox O2 Delivery O2 Flow Rate FiO2 01/02/17 08:00 98.4 96 19 01/02/17 04:00 97.9 84 16 101/66 100 Nasal Cannula 2.0 01/02/17 00:00 99.5 94 18 95/61 99 Nasal Cannula 2.0 01/01/17 20:00 99 Nasal Cannula 2.0 28 01/01/17 20:00 Nasal Cannula 2.0 28 01/01/17 20:00 98.1 81 17 105/64 99 Nasal Cannula 2.0 01/01/17 18:15 98.0 76 12 114/71 100 Nasal Cannula 3.0 01/01/17 18:00 76 16 106/74 100 Nasal Cannula 3.0 01/01/17 17:50 77 14 105/73 100 Nasal Cannula 3.0 01/01/17 17:42 75 12 120/72 100 Nasal Cannula 3.0 01/01/17 17:39 78 20 99 4/6/17 17:37 76 16 113/79 100 Simple Mask 6.0 01/01/17 17:32 97.9 79 22 123/82 100 Simple Mask 6.0 01/01/17 17:00 97.9 77 17 111/63 98 Nasal Cannula 2.0 01/01/17 14:40 97.9 01/01/17 12:00 97.9 80 20 116/74 95 Room Air Intake and Output 01/01/17 01/02/17 19:00 07:00 Intake Total 1490 ml 1990 ml Output Total 180 ml 1450 ml Balance 1310 ml 540 ml Intake Oral 0 ml 740 ml IV Total 1490 ml 1250 ml Output Urine Total 130 ml 1450 ml Estimated Blood Loss 50 ml # Voids 4 Laboratory Tests 01/01/17 12:15: Prothrombin Time 10.2, Prothromb Time International Ratio 1.0, Activated Partial Thromboplast Time 29 Height (Feet): 5 Height (Inches): 2.00 Weight (Pounds): 120 Objective PHYSICAL EXAMINATION: GENERAL: Alert, awake, and oriented x3. The patient is Nepali and being interpreted. HEENT: PERRLA. NECK: Range of motion is full in all directions. No tenderness to paracervical muscles. No adenopathy. LUNGS: Lungs are clear. HEART: Regular. ABDOMEN: Benign. BACK: Range of motion is full on flexion and extension. No tenderness to paraspinal muscles, trapezius muscles or rhomboid muscles. EXTREMITIES: Lower extremity range of motion is decreased due to patient's pain and condition with tenderness to palpation of the right hip. Bandages noted. NEURO: No changes. MAURO JAIME Jan 02, 2017 09:11
--- NOTE | 2017-01-02 10:27 | Diagnostic Imaging Report ---
Indication: Right hip fracture Technique: Intraoperative images Comparison: 12/30/2016 Findings: Intraoperative images document repair of previously demonstrated right hip fracture using medullary france and compression screw. Impression: Intraoperative imaging, as described
--- NOTE | 2017-01-02 11:47 | 48 Hour Post Anesthesia Eval ---
Post Anesthesia Evaluation Procedure: ORIF of R femoral neck Fx Date of Evaluation: Jan 02, 2017 Time of Evaluation: 11:45 Blood Pressure Systolic: 108 0: 62 Pulse Rate: 64 Respiratory Rate: 20 Temperature (Fahrenheit): 97.6 O2 Sat by Pulse Oximetry: 98 Airway: patent Nausea: No Vomiting: No Pain Intensity: 3 Hydration Status: adequate Cardiopulmonary Status: stable Mental Status/LOC: patient returned to baseline Follow-up Care/Observations: N/A Post-Anesthesia Complications: none Follow-up care needed: N/A YING CELESTE M.D. Jan 02, 2017 11:47
[2017-01-02 12:00] VITALS: BP 99/61
[2017-01-02] MEDS: Morphine Sulfate 4mg/ml Inj IVP PRN (12:15)
[2017-01-02 16:00] VITALS: BP 106/68
[2017-01-02 20:00] VITALS: BP 109/68
[2017-01-03] MEDS: Morphine Sulfate 4mg/ml Inj IVP PRN ×3 (00:47→15:33)
[2017-01-03 01:20] VITALS: BP 110/72
[2017-01-03 04:00] VITALS: BP 105/69
[2017-01-03 08:00] VITALS: BP 104/74
[2017-01-03] MEDS: Pericolace tab ORAL SCH ×2 (08:10→17:32)
--- NOTE | 2017-01-03 09:14 | General Progress Note ---
Assessment/Plan Problem List: (1) Fall ICD Codes: W19.XXXA - Unspecified fall, initial encounter SNOMED: 5683804, [id number] Qualifiers: Qualified Codes: W19.XXXA - Unspecified fall, initial encounter (2) Lytic bone lesion of hip ICD Codes: M89.8X5 - Other specified disorders of bone, thigh SNOMED: 70683470 (3) Hip fracture, right ICD Codes: S72.001A - Fracture of unspecified part of neck of right femur, initial encounter for closed fracture SNOMED: 324805173 (4) Fracture of femoral neck, right, closed ICD Codes: S72.001A - Fracture of unspecified part of neck of right femur, initial encounter for closed fracture SNOMED: 334473779, 887630142 Qualifiers: Qualified Codes: S72.001A - Fracture of unspecified part of neck of right femur, initial encounter for closed fracture Status: progressing Assessment/Plan s/p orif afebrile has multiple myeloma per heme/onc needs pt Subjective ROS Limited/Unobtainable: Yes Constitutional: Reports: no symptoms Allergies: Coded Allergies: No Known Allergies (Unverified , 12/30/16) Objective Last 24 Hour Vital Signs Date Time Temp Pulse Resp B/P Pulse Ox O2 Delivery O2 Flow Rate FiO2 01/03/17 08:00 97.7 92 19 104/74 92 Room Air 01/03/17 04:00 98.1 82 18 105/69 99 Nasal Cannula 01/03/17 01:20 97.5 86 20 110/72 99 Room Air 01/02/17 20:00 98.1 91 19 109/68 95 Nasal Cannula 2.0 01/02/17 19:30 Nasal Cannula 2.0 28 01/02/17 19:30 99 Nasal Cannula 2.0 28 01/02/17 16:00 97.7 64 16 106/68 98 Room Air 01/02/17 12:00 99.3 98 20 99/61 99 Room Air 01/02/17 11:47 64 20 98 Intake and Output 01/02/17 01/03/17 19:00 07:00 Intake Total 240 ml Output Total 1000 ml Balance -1000 ml 240 ml Intake Oral 240 ml Output Urine Total 1000 ml # Voids 5 # Bowel Movements 1 Height (Feet): 5 Height (Inches): 2.00 Weight (Pounds): 120 EENT: PERRL/EOMI Neck: supple Cisco Toussaint MD Jan 03, 2017 09:14
[2017-01-03 12:23] VITALS: BP 109/70
[2017-01-03 16:00] VITALS: BP 93/62
[2017-01-03 20:00] VITALS: BP 104/70
--- NOTE | 2017-01-03 20:47 | General Progress Note ---
Assessment/Plan Assessment/Plan Assessment/Plan Assessment/Plan ASSESSMENT: - Multiple myeloma has recently been on treatment with Dr. [facility] [place] [facility] - continue outpatient followup, disease has been under good control and will order SPEP to quantify abnormal M-protein at this moment. 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 - Consider fosamax once discharged as well as myeloma med continuation - Anemia w/u has been ordered--> shows ACD - Thank you for referral, continue to follow! Tiburcio Palmer M.D. Subjective Constitutional: Reports: no symptoms HEENT: Reports: no symptoms Cardiovascular: Reports: no symptoms Respiratory: Reports: no symptoms Gastrointestinal/Abdominal: Reports: no symptoms Genitourinary: Reports: no symptoms Neurologic/Psychiatric: Reports: no symptoms Endocrine: Reports: no symptoms Hematologic/Lymphatic: Reports: no symptoms Allergies: Coded Allergies: No Known Allergies (Unverified , 12/30/16) Objective Last 24 Hour Vital Signs Date Time Temp Pulse Resp B/P Pulse Ox O2 Delivery O2 Flow Rate FiO2 01/03/17 16:00 97.7 97 18 93/62 96 Room Air 01/03/17 12:23 97.5 91 19 109/70 97 Room Air 01/03/17 08:00 97.7 92 19 104/74 92 Room Air 01/03/17 06:55 Nasal Cannula 2.0 01/03/17 06:54 99 Nasal Cannula 2.0 01/03/17 04:00 98.1 82 18 105/69 99 Nasal Cannula 01/03/17 01:20 97.5 86 20 110/72 99 Room Air Intake and Output 01/02/17 01/03/17 19:00 07:00 Intake Total 240 ml Output Total 1000 ml Balance -1000 ml 240 ml Intake Oral 240 ml Output Urine Total 1000 ml # Voids 5 # Bowel Movements 1 Height (Feet): 5 Height (Inches): 2.00 Weight (Pounds): 120 General Appearance: no apparent distress EENT: normal ENT inspection Neck: normal alignment Cardiovascular: normal rate Respiratory/Chest: lungs clear Abdomen: soft Pelvis: no masses Extremities: non-tender Edema: no edema noted Arm (L), no edema noted Arm (R), no edema noted Leg (L), no edema noted Leg (R), no edema noted Pedal (L), no edema noted Pedal (R), no edema noted Generalized Edema: mild edema Neurologic: alert Skin: warm/dry Lymphatic: normal anterior cervical (L), normal anterior cervical (R), normal axillary (L), normal axillary (R), normal inguinal (L), normal inguinal (R), normal other, normal posterior cervical (L), normal posterior cervical (R), normal submandibular (L), normal submandibular (R), normal supraclavicular (L), normal supraclavicular (R) TIBURCIO PALMER Jan 03, 2017 20:47
[2017-01-03] MEDS: HYDROmorphone 1mg/ml Carpuject IVP PRN (21:47)
[2017-01-04] VITALS: BP 103/64
[2017-01-04 04:00] VITALS: BP 104/61
[2017-01-04] MEDS: Morphine Sulfate 4mg/ml Inj IVP PRN (05:43)
[2017-01-04] MEDS: Pericolace tab ORAL SCH ×2 (07:40→16:52)
[2017-01-04 08:00] VITALS: BP 109/71
--- NOTE | 2017-01-04 09:58 | General Progress Note ---
Assessment/Plan Problem List: (1) Fall ICD Codes: W19.XXXA - Unspecified fall, initial encounter SNOMED: 8583998, 340174626 Qualifiers: Qualified Codes: W19.XXXA - Unspecified fall, initial encounter (2) Lytic bone lesion of hip ICD Codes: M89.8X5 - Other specified disorders of bone, thigh SNOMED: 17717378 (3) Hip fracture, right ICD Codes: S72.001A - Fracture of unspecified part of neck of right femur, initial encounter for closed fracture SNOMED: 796502943 (4) Fracture of femoral neck, right, closed ICD Codes: S72.001A - Fracture of unspecified part of neck of right femur, initial encounter for closed fracture SNOMED: 399034524, 154242615 Qualifiers: Qualified Codes: S72.001A - Fracture of unspecified part of neck of right femur, initial encounter for closed fracture Status: progressing Assessment/Plan afebrile vitals stable no wheezing s/p fracture repair dc planning Subjective ROS Limited/Unobtainable: Yes Constitutional: Reports: no symptoms Allergies: Coded Allergies: No Known Allergies (Unverified , 12/30/16) Objective Last 24 Hour Vital Signs Date Time Temp Pulse Resp B/P Pulse Ox O2 Delivery O2 Flow Rate FiO2 01/04/17 08:00 97.2 93 18 109/71 94 Room Air 01/04/17 04:00 98.2 91 20 104/61 96 Room Air 01/04/17 00:00 98.3 91 19 103/64 93 Room Air 01/03/17 20:00 98.2 73 18 104/70 95 Room Air 01/03/17 19:20 Nasal Cannula 2.0 01/03/17 19:15 97 Nasal Cannula 2.0 01/03/17 16:00 97.7 97 18 93/62 96 Room Air 01/03/17 12:23 97.5 91 19 109/70 97 Room Air Intake and Output 01/03/17 01/04/17 19:00 07:00 Intake Total 1080 ml 360 ml Balance 1080 ml 360 ml Intake Oral 1080 ml 360 ml # Voids 3 4 # Bowel Movements 1 Height (Feet): 5 Height (Inches): 2.00 Weight (Pounds): 120 Cardiovascular: normal rate Respiratory/Chest: lungs clear Abdomen: non tender Cisco Toussaint MD Jan 04, 2017 09:58
[2017-01-04] MEDS: oxyCODONE 5mg IR tab ORAL PRN ×3 (10:58→21:43)
--- NOTE | 2017-01-04 10:58 | General Progress Note ---
Assessment/Plan Assessment/Plan (1) Hip fracture, right (2) Multiple myeloma (3) Intractable pain (4) S/P Fall (5) S/P ORIF The patient will be continued on morphine, Oxycodone and Dilaudid. The patient was discussed with Dr. Edwards and Dr. Edwards concurred. Subjective Date patient seen: Jan 04, 2017 Time patient seen: 10:15 - am Allergies: Coded Allergies: No Known Allergies (Unverified , 12/30/16) Subjective REVIEW OF SYSTEMS: Denies rash, fever, chills, sweating, dizziness, drowsiness, blurred vision, sore throat, or change in weight. No shortness of breath or chest pain. No nausea, vomiting, or blood in the stool or urine. No bowel or bladder incontinence. No dysuria. She is complaining of right hip pain. SUBJECTIVE: Pt is lying in bed in no acute distress c/o pain with walking and PT. D/w nurse who reports pt pain has been controlled well on the medications. Pts is at bed side. Objective Last 24 Hour Vital Signs Date Time Temp Pulse Resp B/P Pulse Ox O2 Delivery O2 Flow Rate FiO2 01/04/17 08:00 97.2 93 18 109/71 94 Room Air 01/04/17 04:00 98.2 91 20 104/61 96 Room Air 01/04/17 00:00 98.3 91 19 103/64 93 Room Air 01/03/17 20:00 98.2 73 18 104/70 95 Room Air 01/03/17 19:20 Nasal Cannula 2.0 01/03/17 19:15 97 Nasal Cannula 2.0 01/03/17 16:00 97.7 97 18 93/62 96 Room Air 01/03/17 12:23 97.5 91 19 109/70 97 Room Air Intake and Output 01/03/17 01/04/17 19:00 07:00 Intake Total 1080 ml 360 ml Balance 1080 ml 360 ml Intake Oral 1080 ml 360 ml # Voids 3 4 # Bowel Movements 1 Height (Feet): 5 Height (Inches): 2.00 Weight (Pounds): 120 Objective PHYSICAL EXAMINATION: GENERAL: Alert, awake, and oriented x3. The patient is Romanian and being interpreted. HEENT: PERRLA. NECK: Range of motion is full in all directions. No tenderness to paracervical muscles. No adenopathy. LUNGS: Lungs are clear. HEART: Regular. ABDOMEN: Benign. BACK: Range of motion is full on flexion and extension. No tenderness to paraspinal muscles, trapezius muscles or rhomboid muscles. EXTREMITIES: Lower extremity range of motion is decreased due to patient's pain and condition with tenderness to palpation of the right hip. Bandages noted. NEURO: No changes. MAURO JAIME. Jan 04, 2017 10:58
[2017-01-04 12:38] VITALS: BP 108/68
--- NOTE | 2017-01-04 15:49 | General Progress Note ---
Assessment/Plan Assessment/Plan ASSESSMENT: - Multiple myeloma has recently been on treatment with Dr[facility] 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 - Consider fosamax once discharged as well as myeloma med continuation - Anemia w/u has been ordered--> shows ACD - Thank you for referral, continue to follow! Subjective Constitutional: Denies: chills, diaphoresis, fever, malaise, no symptoms, other , weakness HEENT: Denies: blurred vision, double vision, ear discharge, ear pain, eye pain , mouth pain, mouth swelling, no symptoms, nose congestion, nose pain, other, tearing, throat pain, throat swelling Cardiovascular: Denies: chest pain, edema, irregular heart rate, lightheadedness, no symptoms, other, palpitations, syncope Respiratory: Denies: SOB at rest, SOB with excertion, cough, no symptoms, orthopnea, other, shortness of breath, sputum, stridor, wheezing Gastrointestinal/Abdominal: Denies: abdomen distended, abdominal pain, black stools, blood in stool, constipated, diarrhea, difficulty swallowing, nausea, no symptoms, other, poor appetite, poor fluid intake, rectal bleeding, tarry stools, vomiting Genitourinary: Denies: burning, discharge, flank pain, frequency, hematuria, incontinence, no symptoms, other, pain, urgency Neurologic/Psychiatric: Denies: anxiety, depressed, emotional problems, headache, no symptoms, numbness, other, paresthesia, pre-existing deficit, seizure, tingling, tremors, weakness Endocrine: Denies: excessive sweating, flushing, increased hunger, increased thirst, increased urine, intolerance to cold, intolerance to heat, no symptoms, other, unexplained weight gain, unexplained weight loss Hematologic/Lymphatic: Denies: anemia, easy bleeding, easy bruising, no symptoms, other Allergies: Coded Allergies: No Known Allergies (Unverified , 12/30/16) Subjective stable, no events, no fevers or chills reported Objective Last 24 Hour Vital Signs Date Time Temp Pulse Resp B/P Pulse Ox O2 Delivery O2 Flow Rate FiO2 01/04/17 12:38 97.5 79 20 108/68 95 Room Air 01/04/17 08:00 97.2 93 18 109/71 94 Room Air 01/04/17 04:00 98.2 91 20 104/61 96 Room Air 01/04/17 00:00 98.3 91 19 103/64 93 Room Air 01/03/17 20:00 98.2 73 18 104/70 95 Room Air 01/03/17 19:20 Nasal Cannula 2.0 01/03/17 19:15 97 Nasal Cannula 2.0 01/03/17 16:00 97.7 97 18 93/62 96 Room Air Intake and Output 01/03/17 01/04/17 19:00 07:00 Intake Total 1080 ml 360 ml Balance 1080 ml 360 ml Intake Oral 1080 ml 360 ml # Voids 3 4 # Bowel Movements 1 Height (Feet): 5 Height (Inches): 2.00 Weight (Pounds): 120 General Appearance: no apparent distress EENT: TMs normal Neck: supple Cardiovascular: regular rhythm Respiratory/Chest: no respiratory distress Abdomen: soft Extremities: non-tender Edema: 1+ Leg (L), 1+ Leg (R) Edema: mild edema Neurologic: alert Skin: warm/dry Francis Fu Jan 04, 2017 15:49
[2017-01-04 16:00] VITALS: BP 121/74
[2017-01-04 20:00] VITALS: BP 113/74
[2017-01-05] VITALS: BP 108/70
[2017-01-05 04:00] VITALS: BP 104/66
[2017-01-05 08:00] VITALS: BP 112/76
[2017-01-05] MEDS: Pericolace tab ORAL SCH ×2 (09:00→19:05)
[2017-01-05] MEDS: oxyCODONE 5mg IR tab ORAL PRN (09:30)
--- NOTE | 2017-01-05 09:42 | General Progress Note ---
Assessment/Plan Assessment/Plan (1) Hip fracture, right (2) Multiple myeloma (3) Intractable pain (4) S/P Fall (5) S/P ORIF The patient will be continued on morphine, Oxycodone and Dilaudid. The patient was discussed with Dr. Edwards and Dr. Edwards concurred. Subjective Date patient seen: Jan 05, 2017 Time patient seen: 07:30 - am Allergies: Coded Allergies: No Known Allergies (Unverified , 12/30/16) Subjective REVIEW OF SYSTEMS: Denies rash, fever, chills, sweating, dizziness, drowsiness, blurred vision, sore throat, or change in weight. No shortness of breath or chest pain. No nausea, vomiting, or blood in the stool or urine. No bowel or bladder incontinence. No dysuria. She is complaining of right hip pain. SUBJECTIVE: and nurse at bed side. Pt reports that the pain has been controlled on the medications. She still has pain with movement and it is reduced on the medications. Objective Last 24 Hour Vital Signs Date Time Temp Pulse Resp B/P Pulse Ox O2 Delivery O2 Flow Rate FiO2 01/05/17 08:00 97.7 88 20 112/76 96 Room Air 01/05/17 04:00 98.1 73 18 104/66 97 Room Air 01/05/17 00:00 97.7 68 19 108/70 98 Room Air 01/04/17 20:00 96.1 82 20 113/74 95 Room Air 01/04/17 19:30 Room Air 21 01/04/17 19:30 94 Room Air 21 01/04/17 16:00 97.5 88 20 121/74 98 Room Air 01/04/17 12:38 97.5 79 20 108/68 95 Room Air Intake and Output 01/04/17 01/05/17 19:00 07:00 Intake Total 840 ml 240 ml Balance 840 ml 240 ml Intake Oral 840 ml 240 ml # Voids 4 2 Height (Feet): 5 Height (Inches): 2.00 Weight (Pounds): 120 Objective PHYSICAL EXAMINATION: GENERAL: Alert, awake, and oriented x3. The patient is Syriac and being interpreted. HEENT: PERRLA. NECK: Range of motion is full in all directions. No tenderness to paracervical muscles. No adenopathy. LUNGS: Lungs are clear. HEART: Regular. ABDOMEN: Benign. BACK: Range of motion is full on flexion and extension. No tenderness to paraspinal muscles, trapezius muscles or rhomboid muscles. EXTREMITIES: Lower extremity range of motion is decreased due to patient's pain and condition with tenderness to palpation of the right hip. Bandages noted. NEURO: No changes. MAURO JAIME Jan 05, 2017 09:42
[2017-01-05 12:00] VITALS: BP 107/67
--- NOTE | 2017-01-05 15:05 | General Progress Note ---
Assessment/Plan Problem List: (1) Fall ICD Codes: W19.XXXA - Unspecified fall, initial encounter SNOMED: 5343652, 883556904 Qualifiers: Qualified Codes: W19.XXXA - Unspecified fall, initial encounter (2) Lytic bone lesion of hip ICD Codes: M89.8X5 - Other specified disorders of bone, thigh SNOMED: 86705634 (3) Hip fracture, right ICD Codes: S72.001A - Fracture of unspecified part of neck of right femur, initial encounter for closed fracture SNOMED: 397609025 (4) Fracture of femoral neck, right, closed ICD Codes: S72.001A - Fracture of unspecified part of neck of right femur, initial encounter for closed fracture SNOMED: 300153923, 726005166 Qualifiers: Qualified Codes: S72.001A - Fracture of unspecified part of neck of right femur, initial encounter for closed fracture Status: progressing Assessment/Plan afebrile vitals stable dc home if ok w ortho dc per ortho Subjective ROS Limited/Unobtainable: Yes Constitutional: Reports: no symptoms Allergies: Coded Allergies: No Known Allergies (Unverified , 12/30/16) Objective Last 24 Hour Vital Signs Date Time Temp Pulse Resp B/P Pulse Ox O2 Delivery O2 Flow Rate FiO2 01/05/17 12:00 97.2 67 20 107/67 98 Room Air 01/05/17 08:00 97.7 88 20 112/76 96 Room Air 01/05/17 04:00 98.1 73 18 104/66 97 Room Air 01/05/17 00:00 97.7 68 19 108/70 98 Room Air 01/04/17 20:00 96.1 82 20 113/74 95 Room Air 01/04/17 19:30 Room Air 21 01/04/17 19:30 94 Room Air 21 01/04/17 16:00 97.5 88 20 121/74 98 Room Air Intake and Output 01/04/17 01/05/17 19:00 07:00 Intake Total 840 ml 240 ml Balance 840 ml 240 ml Intake Oral 840 ml 240 ml # Voids 4 2 Height (Feet): 5 Height (Inches): 2.00 Weight (Pounds): 120 EENT: PERRL/EOMI Neck: supple Cardiovascular: normal rate Respiratory/Chest: lungs clear Abdomen: soft Hadadz,Ali MD Jan 05, 2017 15:05
[2017-01-05 16:49] VITALS: BP 118/64
--- NOTE | 2017-01-05 17:17 | General Progress Note ---
Assessment/Plan Assessment/Plan ASSESSMENT: - Multiple myeloma has recently been on treatment with [facility] 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 - Consider fosamax once discharged as well as myeloma med continuation - Anemia w/u has been ordered--> shows ACD - Thank you for referral, continue to follow! Subjective Constitutional: Reports: no symptoms HEENT: Reports: no symptoms Cardiovascular: Reports: no symptoms Respiratory: Reports: no symptoms Gastrointestinal/Abdominal: Reports: no symptoms Genitourinary: Reports: no symptoms Neurologic/Psychiatric: Reports: no symptoms Endocrine: Reports: no symptoms Hematologic/Lymphatic: Reports: anemia Allergies: Coded Allergies: No Known Allergies (Unverified , 12/30/16) Subjective stable, no events, no fevers or chills Objective Last 24 Hour Vital Signs Date Time Temp Pulse Resp B/P Pulse Ox O2 Delivery O2 Flow Rate FiO2 01/05/17 16:49 98.1 64 20 118/64 98 Room Air 01/05/17 12:00 97.2 67 20 107/67 98 Room Air 01/05/17 08:00 97.7 88 20 112/76 96 Room Air 01/05/17 04:00 98.1 73 18 104/66 97 Room Air 01/05/17 00:00 97.7 68 19 108/70 98 Room Air 01/04/17 20:00 96.1 82 20 113/74 95 Room Air 01/04/17 19:30 Room Air 21 01/04/17 19:30 94 Room Air 21 Intake and Output 01/04/17 01/05/17 19:00 07:00 Intake Total 840 ml 240 ml Balance 840 ml 240 ml Intake Oral 840 ml 240 ml # Voids 4 2 Height (Feet): 5 Height (Inches): 2.00 Weight (Pounds): 120 General Appearance: no apparent distress EENT: TMs normal Neck: normal alignment Cardiovascular: regular rhythm Respiratory/Chest: lungs clear Abdomen: soft Extremities: non-tender Neurologic: oriented x 3 Skin: warm/dry Francis Fu Jan 05, 2017 17:17
[2017-01-05] MEDS: HYDROmorphone 1mg/ml Carpuject IVP PRN (19:05)
[2017-01-05 20:00] VITALS: BP 116/74
[2017-01-05] MEDS ORDERED: ULTRA-LIGHT RO1 EACH MC ×2 (20:19→20:23)
[2017-01-05] MEDS ORDERED: PERCOCET 5-3251 EACH ORAL (20:20)
--- NOTE | 2017-01-06 13:01 | Discharge Summary ---
Discharge Summary Hospital Course Date of Admission Dec 30, 2016 at 18:42 Date of Discharge Jan 05, 2017 at 22:30 Admitting Diagnosis HIP FRACTURE, UNABLE TO AMBULATE HPI Dillon Cruz is a 56 year old female who was admitted on Dec 30, 2016 at 18:42 for Hip Fracture Hospital Course dc summary #[id number] Discharge Medications Continued Medications: Oxycodone/Acetaminophen 5-325* (Percocet 5-325 Mg Tablet*) 1 Each Tablet 1 TAB ORAL Q6H PRN for For Pain, #30 TAB 0 Refills Discharge Condition Upon Discharge: stable Discharge Disposition Patient was discharged to Home with Home Health(06) Discharge Diagnoses: Discharge Instructions Discharge Instructions Special Instructions I have been assigned to complete a D/C Summary on this account. I was not involved in the patient management Casandra Elizalde NP ([place]) Jan 06, 2017 13:01
--- NOTE | 2017-01-07 03:38 | Discharge Summary 2 SIG ---
DATE OF ADMISSION: 12/30/2016 DATE OF DISCHARGE: 01/05/2017 REASON FOR ADMISSION: 56 years old female presented to the emergency room status post fall on the right hip while going to the bathroom. The patient has a history of multiple myeloma and currently undergoing chemotherapy. She ambulates with crutches at the baseline. No other medical problems. She denied head trauma or other injury. CT of the hip revealed comminuted right femoral neck pathological fracture. CT of the hip was also positive for pathological fracture of left superior and inferior pubic rami, probably subacute, osteolytic lesions throughout the pelvis, presumably representing metastatic neoplasm. Multiple soft tissue nodules likely also representing metastatic process. Orthopedic surgeon was consulted. The patient had no leukocytosis. Hemoglobin and hematocrit were stable. The patient was admitted for further management. ADMITTING DIAGNOSES: 1. Status post mechanical fall. 2. Right femoral neck fracture. 3. Lytic bone lesions. HOSPITAL STAY: Orthopedic surgeon seen and evaluated the patient. Subsequently, the patient had undergone open reduction and internal fixation of right pathological subtrochanteric femoral fracture. Course of recovery was uneventful. The patient with a known history of multiple myeloma and currently undergoing chemotherapy with Dr. Darden at [facility]. Practical Nurse/Oncologist seen and evaluated the patient and recommended to follow up as an outpatient with Dr. Darden to continue treatment. The patient with evidence of anemia, likely secondary to multiple myeloma. No trend down in hemoglobin/hematocrit noted. Pain management was provided. Pain specialist optimized medication regimen based on the patient's need including postoperative pain, as well as the chronic pain secondary to multiple myeloma. The patient was working with physical and occupational therapists. DVT prophylaxis provided. Bowel regimen instituted. Fall precautions were maintained. The patient was stable for discharge. CA-125 within normal limits- 13.9. Serum protein electrophoresis revealed M2 only 0.2, which demonstrated excellent control as per Practical Nurse/Oncologist. Iron panel with a sufficient iron. The patient likely has anemia of chronic disease secondary to multiple myeloma. Coagulation profile was stable. DISCHARGE DIAGNOSES: 1. Status post mechanical fall. 2. Right pathological subtrochanteric femur fracture. 3. Status post open reduction and internal fixation of right subtrochanteric pathological femoral fracture. 4. Multiple myeloma. 5. Intractable pain. 6. Anemia secondary to multiple myeloma. DISCHARGE MEDICATIONS: See medication reconciliation list. DISCHARGE INSTRUCTIONS: The patient was discharged home. Follow up with the Dr. Darden at [facility] to continue outpatient treatment for multiple myeloma. Cisco Toussaint M.D. I have been assigned to dictate discharge summary on this account and I was not involved in the patient's management. Casandra EnriqueSt. Lawrence Psychiatric Centerneymar N.PAspen DR: LOURDES JOB#: [id number] CC: ARASH
== END 2017-01-05 22:30 | disposition home health service (06) | DRG 481 ==
LOC: EDBD 15:45 → EMR 18:05 → 3E 18:42 → EDBEDREQ 19:32 → 3E 22:20
PROC: 0QS636Z Reposition Right Upper Femur with Intramedullary Internal Fixation Device, Percutaneous Approach (ICD-10-PCS; principal; 2017-01-01 15:00)
DX: M84.451A Pathological fracture, right femur, initial encounter for fracture (principal); C90.00 Multiple myeloma not having achieved remission; M84.48XA Pathological fracture, other site, initial encounter for fracture; D63.0 Anemia in neoplastic disease; Z79.899 Other long term (current) drug therapy; Z91.81 History of falling
CPT/HCPCS: 36415; 72170; 76001; 80048; 80053; 82728; 83540; 83550; 84165; 85007; 85025; 85044; 85610; 85730; 86304; 93005; 94003; 94150; 94760; C9399; J2250